=== PATIENT | female | born 1975 | race Caucasian/White ===

== ENCOUNTER → 2021-12-13 13:53 | Outpatient (BNVA) | payer OTHER, SELFPAY | PROVIDERS: PCP Internal Medicine; Referring Provider Internal Medicine; Visit Provider Psychiatry & Neurology Neurology ==

== ENCOUNTER → 2022-10-26 09:59 | Outpatient (REF) | payer OTHER, SELFPAY | LOC: HO.SL 09:59 | PROVIDERS: PCP Internal Medicine; Visit Provider Psychiatry & Neurology Neurology | DX: G47.10 Hypersomnia, unspecified (principal); G47.00 Insomnia, unspecified; R06.83 Snoring; I10 Essential (primary) hypertension | CPT/HCPCS: 95806 ==

== ENCOUNTER → 2022-12-28 08:33 | Outpatient (BNVA) | payer OTHER, SELFPAY | PROVIDERS: PCP Internal Medicine; Visit Provider Nurse Practitioner Family | DX: Z13.89 Encounter for screening for other disorder (principal) ==

== ENCOUNTER → 2023-03-12 22:58 | Outpatient (REF) | payer OTHER, SELFPAY | LOC: HO.SL 22:58 | PROVIDERS: Visit Provider Nurse Practitioner Family | DX: R06.83 Snoring (principal); G47.10 Hypersomnia, unspecified; I10 Essential (primary) hypertension; G47.00 Insomnia, unspecified | CPT/HCPCS: 95810 ==

== ENCOUNTER 2023-06-29 14:03 | Outpatient (AMB) | payer OTHER, SELFPAY ==
[2023-06-29 14:05] VITALS: BP 122/70; PULSE 74; O2SAT 97; BMI 32.3
--- NOTE | 2023-06-29 14:05 | A.OFFVIS_ITS ---
Intake Vital Signs 06/29/23 14:05 Height 5 ft 6 in Weight 200 lb BMI 32.3 BP 122/70 Blood Pressure Location Rt brachial Position Sitting Pulse 74 Pulse Source Pulse Oximeter Pulse Oximetry (%) 97 Oxygen Delivery Method Room Air Intake Visit Reasons: Follow up hypersomnia Allergies lisinopril Allergy (Severe, Verified 06/29/23 14:06) Chest Pain Medication List - Last Reconciled 06/29/23 by Juanpablo Dutta CNP atorvastatin 40 mg PO DAILY baclofen 10 mg PO BEDTIME fluoxetine 60 mg PO DAILY gabapentin 600 mg (2 x 300 mg) PO BEDTIME 30 days hydrochlorothiazide 25 mg PO DAILY metoprolol succinate ER 75 mg PO DAILY omeprazole 40 mg PO DAILY riboflavin (vitamin B2) 400 mg PO DAILY 30 days sumatriptan succinate take 1 tab at onset of headache; if no relief may repeat 1 tab after at least 2 hrs; max = 4 tabs/24 hr PO trazodone 150 mg PO BEDTIME HPI HPI Comments History of Present Illness Details 47 y/o female patient presents for follow up of sleep study. The PSG sleep study was normal sleep study. There was no evidence of sleep apnea or sleep related movement disorder. Pt reports that she tried melatonin 5 mg and gabapentin 900 mg it helps her sleep better. However, she feels more dizziness, it happens 1-2 a day. Pt thinks that the dizziness started after starting gabapentin 900 mg. She still has frequent migraine. [facility] Medical History (Updated 07/02/23 @ 08:25 by Juanpablo Dutta CNP) Anemia Asthma Depression HTN (hypertension) Insomnia Left breast mass Migraine headache Surgical History (Updated 06/29/23 @ 14:07 by YOSEPH Vance) H/O breast surgery H/O: H/O: hysterectomy Hx of cardiac cath Family History Father HTN (hypertension) Stroke Seizure Mother HTN (hypertension) CAD (coronary artery disease) Heart disease COPD (chronic obstructive pulmonary disease) Social History Alcohol intake: never Patient Tobacco Use Status: Current someday Tobacco user Cigarettes Per Day: 5 Review of Systems Const All systems reviewed & are unremarkable except as noted in HPI and below Physical Exam Vital Signs: Last Vital Signs Pulse 74 06/29/23 14:05 BP 122/70 06/29/23 14:05 Pulse Ox 97 06/29/23 14:05 Oxygen Delivery Method Room Air 06/29/23 14:05 BMI result Body Mass Index 32.3 Const General: cooperative, healthy appearing, comfortable and no acute distress Orientation/consciousness: patient oriented x3 HEENT Head: Yes normal to inspection and Yes normocephalic Neuro General: patient oriented x3, gait normal, tone normal, moves all extremities, Normal light touch and pain sensation, no focal motor deficits and CN's II-XI intact bilaterally Gait exam (Neuro): Normal gait present Motor exam (neuro): 5/5 motor strength present throughout Assessment & Plan Assessment & Plan (1) Insomnia: Code(s): G47.00 - Insomnia, unspecified (2) Hypersomnia: Code(s): G47.10 - Hypersomnia, unspecified Plan Advised patient to continue to take melatonin 5 mg with trazodone 150 mg. Advised patient to decrease gabapentin to 600 mg and monitor the dizziness. Start riboflavin 400 mg for migraine prevention. Wt reduction advised and continue to practice good sleep hygiene. Medications: New riboflavin (vitamin B2) 400 mg PO DAILY 30 days 30 tabs 1RF Changed From gabapentin 900 mg (3 x 300 mg) PO BEDTIME 30 days 90 caps 3RF To gabapentin 600 mg (2 x 300 mg) PO BEDTIME 30 days 60 caps 3RF Coding Level of Care Code Est Pt Level 4 (11261) Diagnoses Insomnia G47.00 Hypersomnia G47.10
== END 2023-06-29 14:40 | disposition home or self-care (01) ==
PROVIDERS: PCP Internal Medicine; Visit Provider Nurse Practitioner Family
DX: G47.00 Insomnia, unspecified (principal); G47.10 Hypersomnia, unspecified
CPT/HCPCS: 99214

== ENCOUNTER → 2023-06-29 14:03 | Outpatient (BNVA) | payer OTHER, SELFPAY | PROVIDERS: PCP Internal Medicine; Visit Provider Nurse Practitioner Family ==